=== PATIENT | female | born 1935 | race Caucasian/White ===

== ENCOUNTER 2024-01-29 16:36 | Outpatient (CLI) | payer BC, SELFPAY | END 2024-01-29 16:37 | disposition home or self-care (01) | LOC: NFLDREF 01-31 05:54 | PROVIDERS: Visit Provider Nurse Practitioner Family | DX: N89.8 Other specified noninflammatory disorders of vagina (principal); R35.0 Frequency of micturition | CPT/HCPCS: 87086 ==